=== PATIENT | male | born 1970 | race Caucasian/White ===

== ENCOUNTER 2018-12-17 10:10 | Emergency (ER) | payer OTHER, BC ==
[~2018-12-17] VITALS: Ht 185.4 cm; Wt 98.0 kg
[2018-12-17] MEDS ORDERED: SYNTHROID200 MCG (10:27)
== END 2018-12-17 17:20 | disposition home or self-care (01) ==
LOC: ER 10:10
DX: I10 Essential (primary) hypertension (principal); R51 Headache